=== PATIENT | male | born 1955 | race Caucasian/White ===

== ENCOUNTER 2017-10-08 16:40 | Emergency (ER) | payer BC ==
[~2017-10-08] VITALS: Ht 180.3 cm; Wt 80.0 kg
[2017-10-08] MEDS ORDERED: ONDANSETRON HCL 4MG/2ML VIAL IV STA (18:38)
[2017-10-08] MEDS ORDERED: SODIUM CHLORIDE 0.9% 1,000 ML IV ONE (18:38)
[2017-10-08] MEDS ORDERED: LORAZEPAM 2MG/ML CPJ IM ONE ×2 (18:45→20:45)
[2017-10-08 19:02] LABS: BASOPHILS % 1.2 % (0.0-2.0); EOSINOPHILS % 0.9 % (0.0-5.0); HEMATOCRIT. 41.4 % (42.0-52.0); HEMOGLOBIN. 14.2 g/dL (14.0-18.0); LYMPHOCYTES % 39.2 % (20.0-50.0); MEAN CORPUSCULAR HEMOGLOBIN 32.3 pg (28.0-32.0); MEAN CORPUSCULAR VOLUME 94.1 fL (80.0-94.0); MEAN PLATELET VOLUME 8.2 fl (7.4-10.4); MONOCYTES % 8.8 % (2.0-8.0); NEUTROPHILS % 49.9 % (40.0-76.0); PLATELET 297 x1000/uL (130-400); RED CELL DISTRIBUTION WIDTH 13.5 % (11.6-14.6)
[2017-10-08 19:08] LABS: CHLORIDE 109 mEq/L (98-107)
[2017-10-08 19:09] LABS: PROTHROMBIN TIME 10.7 sec (9.4-11.6)
[2017-10-08 19:12] LABS: ETHANOL BLOOD 253 mg/dL
[2017-10-08 20:45] VITALS: BP 130/70
== END 2017-10-08 22:05 | disposition home or self-care (01) ==
LOC: ER 17:28
DX: T51.0X1A Toxic effect of ethanol, accidental (unintentional), initial encounter (principal); G93.40 Encephalopathy, unspecified; R27.0 Ataxia, unspecified; Y92.89 Other specified places as the place of occurrence of the external cause
CPT/HCPCS: 36415; 80053; 84443; 85025; 85610; 96372; 99284; G0482; J2060; J7030